=== PATIENT | female | born 1960 | race American Indian/Alaskan Native ===

== ENCOUNTER 2018-04-15 01:56 | Emergency (ER) | payer OTHER ==
[2018-04-15] MEDS ORDERED: TYLENOL ONE (02:46)
[2018-04-15] MEDS ORDERED: TYLENOL PO ONE (02:47)
--- NOTE | 2018-04-15 04:09 | Emergency Department Report ---
<AVINASH WOLF - Last Filed: 04/15/18 07:22> - General Chief complaint: Skin/Abscess/Foreign Body Stated complaint: VAGINAL PAIN Time Seen by Provider: 04/15/18 03:47 Source: patient Mode of arrival: Ambulatory Limitations: No Limitations - History of Present Illness Initial comments: Patient is a 59-year-old -[place] female who presents for a perianal abscess for the past year is a recurrent problem are either patient states worst is now bleeding there is associated malaise fever chills nausea patient is post menopausal status drainage has increased over the past 2 days patient has not seen Gen. surgery is referred for this problem. MD complaint: abscess/boil Onset/Timin -: year(s) Tetanus Up to Date: yes Location: genitals (perineal ) Severity: moderate Severity scale (0 -10): 5 Quality: aching, sharp Consistency: constant Improves with: none Worsens with: palpation, movement Associated symptoms: rigors, nausea, malaise Treatments Prior to Arrival: none - Related Data Previous Rx's Medication Instructions Recorded Last Taken Type Sulfamethoxazole/Trimethoprim 1 tab PO Q12H #30 tablet 11/23/12 Unknown Rx [Bactrim DS] Cyclobenzaprine [Flexeril] 10 mg PO TID PRN #12 tablet 05/20/13 Unknown Rx HYDROcodone/APAP 5-325 [Duarte 1 each PO Q6HR PRN #12 tablet 05/20/13 Unknown Rx 5/325 mg] Sulfamethoxazole/Trimethoprim 1 each PO BID #20 tablet 05/20/13 Unknown Rx [Bactrim Ds] traMADol [Ultram 50 MG tab] 1 tab PO Q6HR PRN #25 tablet 06/16/14 Unknown Rx Amoxicillin/K Clav Tab [Augmentin 1 tab PO Q12HR #20 tab 01/15/15 Unknown Rx 875 mg] HYDROcodone/APAP 5-325 [Duarte 1 each PO Q6HR PRN #12 tablet 01/15/15 Unknown Rx 5/325] predniSONE [Deltasone] 20 mg PO TID #12 tab 01/15/15 Unknown Rx Bacitracin Zinc [Antibiotic] 28.4 gm TP QID #1 oint...g. 08/06/15 Unknown Rx Permethrin 5% [Acticin 5% CREAM] 1 applicatio TP ONCE #2 tube 08/06/15 Unknown Rx Doxycycline Hyclate [Doxycycline 100 mg PO Q12HR #20 tab 12/11/17 Unknown Rx Hyclate TAB] Ibuprofen [Motrin 600 MG tab] 600 mg PO Q6H PRN #12 tablet 12/11/17 Unknown Rx Clindamycin [Clindamycin CAP] 300 mg PO Q6H 10 Days #40 capsule 04/15/18 Unknown Rx Ibuprofen [Motrin 600 MG tab] 600 mg PO Q8H PRN #20 tablet 04/15/18 Unknown Rx Sulfamethoxazole/Trimethoprim 1 each PO BID 10 Days #20 tablet 04/15/18 Unknown Rx [Bactrim DS TAB] traMADol [Ultram] 50 mg PO Q6HR PRN #12 tablet 04/15/18 Unknown Rx Allergies Allergy/AdvReac Type Severity Reaction Status Date / Time fish derived Allergy Swelling Verified 11/23/12 10:28 Abscess Boil HPI - HPI Chief Complaint: Skin/Abscess/Foreign Body Stated Complaint: VAGINAL PAIN Time Seen by Provider: 04/15/18 03:47 Home Medications: Previous Rx's Medication Instructions Recorded Last Taken Type Sulfamethoxazole/Trimethoprim 1 tab PO Q12H #30 tablet 11/23/12 Unknown Rx [Bactrim DS] Cyclobenzaprine [Flexeril] 10 mg PO TID PRN #12 tablet 05/20/13 Unknown Rx HYDROcodone/APAP 5-325 [Duarte 1 each PO Q6HR PRN #12 tablet 05/20/13 Unknown Rx 5/325 mg] Sulfamethoxazole/Trimethoprim 1 each PO BID #20 tablet 05/20/13 Unknown Rx [Bactrim Ds] traMADol [Ultram 50 MG tab] 1 tab PO Q6HR PRN #25 tablet 06/16/14 Unknown Rx Amoxicillin/K Clav Tab [Augmentin 1 tab PO Q12HR #20 tab 01/15/15 Unknown Rx 875 mg] HYDROcodone/APAP 5-325 [Duarte 1 each PO Q6HR PRN #12 tablet 01/15/15 Unknown Rx 5/325] predniSONE [Deltasone] 20 mg PO TID #12 tab 01/15/15 Unknown Rx Bacitracin Zinc [Antibiotic] 28.4 gm TP QID #1 oint...g. 08/06/15 Unknown Rx Permethrin 5% [Acticin 5% CREAM] 1 applicatio TP ONCE #2 tube 08/06/15 Unknown Rx Doxycycline Hyclate [Doxycycline 100 mg PO Q12HR #20 tab 12/11/17 Unknown Rx Hyclate TAB] Ibuprofen [Motrin 600 MG tab] 600 mg PO Q6H PRN #12 tablet 12/11/17 Unknown Rx Clindamycin [Clindamycin CAP] 300 mg PO Q6H 10 Days #40 capsule 04/15/18 Unknown Rx Ibuprofen [Motrin 600 MG tab] 600 mg PO Q8H PRN #20 tablet 04/15/18 Unknown Rx Sulfamethoxazole/Trimethoprim 1 each PO BID 10 Days #20 tablet 04/15/18 Unknown Rx [Bactrim DS TAB] traMADol [Ultram] 50 mg PO Q6HR PRN #12 tablet 04/15/18 Unknown Rx Allergies/Adverse Reactions: Allergies Allergy/AdvReac Type Severity Reaction Status Date / Time fish derived Allergy Swelling Verified 11/23/12 10:28 ED Review of Systems Constitutional: denies: chills, fever Eyes: denies: eye pain, eye discharge, vision change ENT: denies: ear pain, throat pain Respiratory: denies: cough, shortness of breath, wheezing Cardiovascular: denies: chest pain, palpitations Endocrine: no symptoms reported Gastrointestinal: nausea. denies: abdominal pain, vomiting, diarrhea Genitourinary: other (mass/abscess mon blood drainage ) Musculoskeletal: denies: back pain, joint swelling, arthralgia Skin: other (abscess as above ). denies: rash, lesions Neurological: denies: headache, weakness, paresthesias Psychiatric: denies: anxiety, depression Hematological/Lymphatic: denies: easy bleeding, easy bruising ED Past Medical Hx - Past Medical History Hx Hypertension: Yes Hx Congestive Heart Failure: Yes Hx Diabetes: No Hx Asthma: No Hx COPD: Yes - Surgical History Past Surgical History?: Yes Additional Surgical History: tubal ligation. cyst in breast - Social History Smoking Status: Never Smoker Substance Use Type: None - Medications Home Medications: Home Medications Medication Instructions Recorded Confirmed Last Taken Type Sulfamethoxazole/Trimethoprim 1 tab PO Q12H #30 tablet 11/23/12 08/05/15 Unknown Rx [Bactrim DS] Cyclobenzaprine [Flexeril] 10 mg PO TID PRN #12 tablet 05/20/13 08/05/15 Unknown Rx HYDROcodone/APAP 5-325 [Duarte 1 each PO Q6HR PRN #12 tablet 05/20/13 08/05/15 Unknown Rx 5/325 mg] Sulfamethoxazole/Trimethoprim 1 each PO BID #20 tablet 05/20/13 08/05/15 Unknown Rx [Bactrim Ds] traMADol [Ultram 50 MG tab] 1 tab PO Q6HR PRN #25 tablet 06/16/14 08/05/15 Unknown Rx Amoxicillin/K Clav Tab [Augmentin 1 tab PO Q12HR #20 tab 01/15/15 08/05/15 Unknown Rx 875 mg] HYDROcodone/APAP 5-325 [Duarte 1 each PO Q6HR PRN #12 tablet 01/15/15 08/05/15 Unknown Rx 5/325] predniSONE [Deltasone] 20 mg PO TID #12 tab 01/15/15 08/05/15 Unknown Rx Bacitracin Zinc [Antibiotic] 28.4 gm TP QID #1 oint...g. 08/06/15 Unknown Rx Permethrin 5% [Acticin 5% CREAM] 1 applicatio TP ONCE #2 tube 08/06/15 Unknown Rx Doxycycline Hyclate [Doxycycline 100 mg PO Q12HR #20 tab 12/11/17 Unknown Rx Hyclate TAB] Ibuprofen [Motrin 600 MG tab] 600 mg PO Q6H PRN #12 tablet 12/11/17 Unknown Rx Clindamycin [Clindamycin CAP] 300 mg PO Q6H 10 Days #40 capsule 04/15/18 Unknown Rx Ibuprofen [Motrin 600 MG tab] 600 mg PO Q8H PRN #20 tablet 04/15/18 Unknown Rx Sulfamethoxazole/Trimethoprim 1 each PO BID 10 Days #20 tablet 04/15/18 Unknown Rx [Bactrim DS TAB] traMADol [Ultram] 50 mg PO Q6HR PRN #12 tablet 04/15/18 Unknown Rx ED Physical Exam - General Limitations: No Limitations General appearance: alert, in no apparent distress - Head Head exam: Present: atraumatic, normocephalic - Eye Eye exam: Present: normal appearance - ENT ENT exam: Present: mucous membranes moist - Neck Neck exam: Present: normal inspection, full ROM - Respiratory Respiratory exam: Present: normal lung sounds bilaterally. Absent: respiratory distress - Cardiovascular Cardiovascular Exam: Present: regular rate, normal rhythm, normal heart sounds. Absent: systolic murmur, diastolic murmur, rubs, gallop - GI/Abdominal GI/Abdominal exam: Present: soft, normal bowel sounds. Absent: distended, tenderness, bruit, hernia - Rectal Rectal exam: Present: deferred - External exam: Present: other (abscess /mass mons no thrill no bruit blood drainatge warm to touch pain to palpation no vaginal drainage ) - Extremities Exam Extremities exam: Present: normal inspection - Back Exam Back exam: Present: normal inspection, full ROM. Absent: tenderness, CVA tenderness (R), CVA tenderness (L), muscle spasm, rash noted - Neurological Exam Neurological exam: Present: alert, oriented X3, CN II-XII intact, normal gait, reflexes normal - Psychiatric Psychiatric exam: Present: normal affect, normal mood - Skin Skin exam: Present: warm, dry, intact, normal color, other (perineal absce ss/Mass as above ). Absent: rash ED Medical Decision Making - Lab Data Result diagrams: 04/15/18 04:04 04/15/18 04:04 Labs 04/15/18 04/15/18 04/15/18 04:04 04:04 04:04 WBC 8.9 RBC 4.03 Hgb 11.7 Hct 35.3 MCV 88 MCH 29 MCHC 33 RDW 13.7 Plt Count 294 Lymph % (Auto) 23.3 Cole % (Auto) 7.8 H Eos % (Auto) 2.4 Baso % (Auto) 0.6 Lymph # 2.1 Cole # 0.7 Eos # 0.2 Baso # 0.0 Seg Neutrophils % 65.9 Seg Neutrophils # 5.9 Sodium 138 Potassium 3.4 L Chloride 102.0 Carbon Dioxide 21 L Anion Gap 18 BUN 12 Creatinine 0.8 Estimated GFR > 60 BUN/Creatinine Ratio 15 Glucose 101 H Lactic Acid 0.80 Calcium 8.4 Total Bilirubin 0.30 AST 23 ALT 14 Alkaline Phosphatase 106 C-Reactive Protein 5.60 H Total Protein 7.9 Albumin 3.2 L Albumin/Globulin Ratio 0.7 Urine Color Urine Turbidity Urine pH Ur Specific [place] Urine Protein Urine Glucose (UA) Urine Ketones Urine Blood Urine Nitrite Urine Bilirubin Urine Urobilinogen Ur Leukocyte Esterase Urine WBC (Auto) Urine RBC (Auto) U Epithel Cells (Auto) Urine Mucus 04/15/18 04:08 WBC RBC Hgb Hct MCV MCH MCHC RDW Plt Count Lymph % (Auto) Cole % (Auto) Eos % (Auto) Baso % (Auto) Lymph # Cole # Eos # Baso # Seg Neutrophils % Seg Neutrophils # Sodium Potassium Chloride Carbon Dioxide Anion Gap BUN Creatinine Estimated GFR BUN/Creatinine Ratio Glucose Lactic Acid Calcium Total Bilirubin AST ALT Alkaline Phosphatase C-Reactive Protein Total Protein Albumin Albumin/Globulin Ratio Urine Color Yellow Urine Turbidity Clear Urine pH 5.0 Ur Specific [place] 1.006 Urine Protein <15 mg/dl Urine Glucose (UA) Neg Urine Ketones Neg Urine Blood Lg Urine Nitrite Neg Urine Bilirubin Neg Urine Urobilinogen < 2.0 Ur Leukocyte Esterase Lg Urine WBC (Auto) 31.0 H Urine RBC (Auto) 18.0 U Epithel Cells (Auto) 1.0 Urine Mucus Few - Medical Decision Making symptoms improved, abd pain is resolved, there is no fever no n/v abscess mons is 3x4 cm firm, no drainage or bleeding at this time, dressing is dry and intact , CT pending, wbc: normal, cmp: K: 3.4, CO2: 21, ua: pos lue, wbc, rbc, pt tx with rocephin 1gm ivbp, plan: discussed tx options with patient including General surgery consult for mass / abscess, pt advises that she must work this weekend and cannot stay in hospital, and as mass /ascess is chronic of past 1 yr out pt tx is a reasonable course of action, there are no symptoms of sepsis at this time, will tx with clindamycin, pt will follow up with General surgery for evaluation , there is no vaginal bleeding no fever no n/v pt appears nontoxic at this time, ED Disposition Clinical Impression: UTI (urinary tract infection), Abscess, Abscess of pubic region, Cellulitis of pubic region Disposition: -01 TO HOME OR SELFCARE Condition: Stable Instructions: Cellulitis (ED), Abscess (ED), Bartholin Cyst (ED) Additional Instructions: Make sure to follow up with the primary care physician as discussed. Take all your medications as you've been prescribed. If you have any worsening symptoms or develop new symptoms please return to ED immediately. Prescriptions: Clindamycin [Clindamycin CAP] 300 mg PO Q6H 10 Days #40 capsule Ibuprofen [Motrin 600 MG tab] 600 mg PO Q8H PRN #20 tablet PRN Reason: Pain Sulfamethoxazole/Trimethoprim [Bactrim DS TAB] 1 each PO BID 10 Days #20 tablet traMADol [Ultram] 50 mg PO Q6HR PRN #12 tablet PRN Reason: Pain Referrals: RADHIKA SEARS MD [Primary Care Provider] - 3-5 Days DAI PADILLA MD [Referring] - 3-5 Days [facility] [Provider Group] - 3-5 Days STEPHIE ZARATE MD [Staff Physician] - 3-5 Days Forms: Accompanied Note, Work/School Release Form(ED) <AISSATOU RIVERA - Last Filed: 04/15/18 12:27> ED Review of Systems ROS: Stated complaint: VAGINAL PAIN Other details as noted in HPI ED Physical Exam - External exam: Present: erythema, swelling (vulva and mons pubis swelling and bleed from several holes, controlled.) ED Course Vital Signs 04/15/18 04/15/18 04/15/18 02:04 02:40 09:21 Temperature 97.7 F 97.7 F Pulse Rate 104 H 100 H 90 Respiratory 22 20 16 Rate Blood Pressure 183/101 164/100 Blood Pressure 161/96 [Left] O2 Sat by Pulse 96 99 99 Oximetry ED Medical Decision Making - Lab Data Result diagrams: 04/15/18 04:04 04/15/18 04:04 - Radiology Data Radiology results: report reviewed, image reviewed CT ABDOMEN AND PELVIS WITH CONTRAST INDICATION: Pelvic abscess. COMPARISON: None similar. FINDINGS: Abdomen and pelvis CT performed following intravenous administration of 100 cc of Omnipaque 300. LUNG BASES: Slight cardiomegaly. Nonspecific distal esophageal wall prominence/thickening, not excluded for gastroesophageal reflux and/or hiatal hernia, amongst others. ABDOMEN: Few small calcified gallstones noted dependently. Liver, spleen, pancreas, adrenals, aorta, IVC and kidneys within normal limits. No ascites or size significant mesenteric or retroperitoneal adenopathy. Nonopacified GI tract evaluation limited, though grossly nonobstructive. Tiny fat containing ventral hernia with a transverse neck of 0.5 cm. PELVIS: Urinary bladder, uterus, adnexa/ovaries and rectosigmoid within normal limits. No free fluid. Few bilateral inguinal lymph nodes measure up to 3.3 x 1 cm on the right, axial image 162, series 2. Labial/external genitalia increased attenuation/induration/abscess also partially imaged as on axial series 2, images [id number] measuring up to 3.5 x 5.3 cm as on axial image 195, predominantly involving the labia on the left with some infiltration also extending into the adjacent soft tissues on the right and also superiorly, extending suprapubic and up to the groins. Few small pelvic phleboliths. Few mild bony degenerative changes as involving the right hip with acetabular spurring laterally with pincer-type femoral acetabular impingement not entirely excluded. Please correlate. CONCLUSION: 1. External genitalia/labial induration/possible abscess, more so on the left with some inflammation/infiltration also extending into the adjacent soft tissues, as described above. No deeper intrapelvic extension of inflammation or abscess. Please correlate clinically. 2. Few other incidental findings as cholelithiasis and at the imaged lung bases, amongst others, as above. Thank you for the opportunity to participate in this patient's care. Transcribed By: RS Dictated By: GIORGI DÍAZ MD Electronically Authenticated By: GIORGI DÍAZ MD Signed Date/Time: 04/15/18 1083 - Medical Decision Making Advised pt to f/u with lead sprinkler as referred, take antibioyics as Prescribed Critical care attestation.: If time is entered above; I have spent that time in minutes in the direct care of this critically ill patient, excluding procedure time. ED Disposition Is pt being admited?: No Does the pt Need Aspirin: No Time of Disposition: 09:04
[2018-04-15 04:29] LABS: Bilirubin,Urine NEG (Negative); Blood,Urine LG (Negative); Color,Urine Yellow (Yellow); Mucus,Urine FEW /HPF; Protein,Urine <15 mg/dL mg/dL (Negative); Urobilinogen,Urine < 2.0 mg/dL (<2.0)
[2018-04-15 04:51] LABS: Basophils % (Auto) 0.6 % (0.0-1.8); Eosinophils # (Auto) 0.2 K/mm3 (0.0-0.4); Eosinophils % (Auto) 2.4 % (0.0-4.3); Hematocrit 35.3 % (30.3-42.9); Hemoglobin 11.7 gm/dl (10.1-14.3); Lymphocytes # (Auto) 2.1 K/mm3 (1.2-5.4); Lymphocytes % (Auto) 23.3 % (13.4-35.0); Mean Corpuscular HGB Conc 33 % (30-34); Mean Corpuscular Volume 88 fl (79-97); Monocytes # (Auto) 0.7 K/mm3 (0.0-0.8); Monocytes % (Auto) 7.8 % (0.0-7.3); Platelet Count 294 K/mm3 (140-440); Red Blood Count 4.03 M/mm3 (3.65-5.03); Red Cell Distribution Width 13.7 % (13.2-15.2)
[2018-04-15 05:11] LABS: Alanine Aminotransferase 14 units/L (7-56); Albumin 3.2 g/dL (3.9-5); BUN/Creatinine Ratio 15; Blood Urea Nitrogen 12 mg/dL (7-17); Calcium 8.4 mg/dL (8.4-10.2); Hemolysis Index 3
[2018-04-15] MEDS ORDERED: ZOFRAN IV ONE (05:13)
[2018-04-15] MEDS ORDERED: NACL 0.9% 1000 ML 1,000 ML IV ONE (05:13)
[2018-04-15] MEDS ORDERED: ROCEPHIN/NS 1 GM/50 ML 1 GM/50 ML BAG IV ONE (05:13)
[2018-04-15] MEDS ORDERED: MORPHINE IV ONE (05:13)
[2018-04-15] MEDS ORDERED: ROCEPHIN IM ONE (05:20)
--- NOTE | 2018-04-15 08:30 | Cat Scan Report ---
CT ABDOMEN AND PELVIS WITH CONTRAST INDICATION: Pelvic abscess. COMPARISON: None similar. FINDINGS: Abdomen and pelvis CT performed following intravenous administration of 100 cc of Omnipaque 300. LUNG BASES: Slight cardiomegaly. Nonspecific distal esophageal wall prominence/thickening, not excluded for gastroesophageal reflux and/or hiatal hernia, amongst others. ABDOMEN: Few small calcified gallstones noted dependently. Liver, spleen, pancreas, adrenals, aorta, IVC and kidneys within normal limits. No ascites or size significant mesenteric or retroperitoneal adenopathy. Nonopacified GI tract evaluation limited, though grossly nonobstructive. Tiny fat containing ventral hernia with a transverse neck of 0.5 cm. PELVIS: Urinary bladder, uterus, adnexa/ovaries and rectosigmoid within normal limits. No free fluid. Few bilateral inguinal lymph nodes measure up to 3.3 x 1 cm on the right, axial image 162, series 2. Labial/external genitalia increased attenuation/induration/abscess also partially imaged as on axial series 2, images 186-199 measuring up to 3.5 x 5.3 cm as on axial image 195, predominantly involving the labia on the left with some infiltration also extending into the adjacent soft tissues on the right and also superiorly, extending suprapubic and up to the groins. Few small pelvic phleboliths. Few mild bony degenerative changes as involving the right hip with acetabular spurring laterally with pincer-type femoral acetabular impingement not entirely excluded. Please correlate. CONCLUSION: 1. External genitalia/labial induration/possible abscess, more so on the left with some inflammation/infiltration also extending into the adjacent soft tissues, as described above. No deeper intrapelvic extension of inflammation or abscess. Please correlate clinically. 2. Few other incidental findings as cholelithiasis and at the imaged lung bases, amongst others, as above. Thank you for the opportunity to participate in this patient's care.
[2018-04-15] MEDS ORDERED: TORADOL IV ONE (09:06)
[2018-04-15 09:22] VITALS: BP 161/96
== END 2018-04-15 09:21 | disposition home or self-care (01) ==
LOC: ED 01:56
DX: L02.215 Cutaneous abscess of perineum (principal); N39.0 Urinary tract infection, site not specified; Z91.013 Allergy to seafood; I11.0 Hypertensive heart disease with heart failure; J44.9 Chronic obstructive pulmonary disease, unspecified; Z98.51 Tubal ligation status
CPT/HCPCS: 36415; 74177; 80053; 81001; 82140; 85025; 86140; 87040; 96365; 96375; 99284; J0696; J1885; J2270; J2405; J7030; Q9967

== ENCOUNTER 2018-07-17 14:27 | Emergency (ER) | payer OTHER ==
[2018-07-17 14:48] VITALS: BP 163/98
--- NOTE | 2018-07-17 14:49 | Emergency Department Report ---
Blank Doc - Documentation Documentation: 58 y o female with PMH of CHF presents with concerns with HTn not on medication, states she feeling headache, fatigue and dizziness. labs, cxr ACC eval
--- NOTE | 2018-07-17 15:15 | XRay Report ---
PROCEDURE: XR CHEST ROUTINE 2V TECHNIQUE: PA and lateral chest radiographs were obtained. HISTORY: Chest Pain COMPARISONS: None. FINDINGS: Heart: Normal. Mediastinum/Vessels: Normal. Lungs/Pleural space: Normal. Bony thorax: No acute osseous abnormality. IMPRESSION: Normal examination. This document is electronically signed by Kwadwo Fischer MD., July 17 2018 04:12:45 PM ET
--- NOTE | 2018-07-17 15:43 | Emergency Department Report ---
ED General Adult HPI - General Chief complaint: High BP Stated complaint: HBP Time Seen by Provider: 07/17/18 14:45 Source: patient Mode of arrival: Ambulatory Limitations: No Limitations - History of Present Illness Initial comments: Ms. Brambila is a 58-year-old female with a history of CHF, bronchitis, hypertension, who presents with 1 month of dizziness, headache and high blood pressure. She recently received dental care. At that time her blood pressure was elevated. Mild nondescript headache with lightheadedness. Denies palpitation. Denies c hest pain. Denies trouble with walking or speech. She drove to the ED by her personal vehicle. She does not have primary physician. She just recently obtained health insurance. For some reason she does not want to accepted the diagnosis of hypertension. -: Gradual, month(s) (1) Consistency: intermittent Improves with: rest Associated Symptoms: denies other symptoms - Related Data Previous Rx's Medication Instructions Recorded Last Taken Type Sulfamethoxazole/Trimethoprim 1 tab PO Q12H #30 tablet 11/23/12 Unknown Rx [Bactrim DS] Cyclobenzaprine [Flexeril] 10 mg PO TID PRN #12 tablet 05/20/13 Unknown Rx HYDROcodone/APAP 5-325 [Wentworth 1 each PO Q6HR PRN #12 tablet 05/20/13 Unknown Rx 5/325 mg] Sulfamethoxazole/Trimethoprim 1 each PO BID #20 tablet 05/20/13 Unknown Rx [Bactrim Ds] traMADol [Ultram 50 MG tab] 1 tab PO Q6HR PRN #25 tablet 06/16/14 Unknown Rx Amoxicillin/K Clav Tab [Augmentin 1 tab PO Q12HR #20 tab 01/15/15 Unknown Rx 875 mg] HYDROcodone/APAP 5-325 [Wentworth 1 each PO Q6HR PRN #12 tablet 01/15/15 Unknown Rx 5/325] predniSONE [Deltasone] 20 mg PO TID #12 tab 01/15/15 Unknown Rx Bacitracin Zinc [Antibiotic] 28.4 gm TP QID #1 oint...g. 08/06/15 Unknown Rx Permethrin 5% [Acticin 5% CREAM] 1 applicatio TP ONCE #2 tube 08/06/15 Unknown Rx Doxycycline Hyclate [Doxycycline 100 mg PO Q12HR #20 tab 12/11/17 Unknown Rx Hyclate TAB] Ibuprofen [Motrin 600 MG tab] 600 mg PO Q6H PRN #12 tablet 12/11/17 Unknown Rx Clindamycin [Clindamycin CAP] 300 mg PO Q6H 10 Days #40 capsule 04/15/18 Unknown Rx Ibuprofen [Motrin 600 MG tab] 600 mg PO Q8H PRN #20 tablet 04/15/18 Unknown Rx Sulfamethoxazole/Trimethoprim 1 each PO BID 10 Days #20 tablet 04/15/18 Unknown Rx [Bactrim DS TAB] traMADol [Ultram] 50 mg PO Q6HR PRN #12 tablet 04/15/18 Unknown Rx amLODIPine [Norvasc] 5 mg PO DAILY 30 Days #30 tab 07/17/18 Unknown Rx hydroCHLOROthiazide [HCTZ] 25 mg PO QDAY 30 Days #30 tablet 07/17/18 Unknown Rx Allergies Allergy/AdvReac Type Severity Reaction Status Date / Time fish derived Allergy Swelling Verified 07/17/18 14:29 ED Review of Systems ROS: Stated complaint: HBP Other details as noted in HPI Comment: All other systems reviewed and negative Constitutional: denies: fever, malaise Neurological: headache. denies: weakness, numbness, paresthesias, confusion, abnormal gait, vertigo ED Past Medical Hx - Past Medical History Previous Medical History?: Yes Hx Hypertension: Yes Hx Congestive Heart Failure: Yes Hx Diabetes: No Hx Asthma: No Hx COPD: Yes - Surgical History Past Surgical History?: Yes Additional Surgical History: tubal ligation. cyst in breast - Social History Smoking Status: Former Smoker Substance Use Type: Alcohol - Medications Home Medications: Home Medications Medication Instructions Recorded Confirmed Last Taken Type Sulfamethoxazole/Trimethoprim 1 tab PO Q12H #30 tablet 11/23/12 08/05/15 Unknown Rx [Bactrim DS] Cyclobenzaprine [Flexeril] 10 mg PO TID PRN #12 tablet 05/20/13 08/05/15 Unknown Rx HYDROcodone/APAP 5-325 [Wentworth 1 each PO Q6HR PRN #12 tablet 05/20/13 08/05/15 Unknown Rx 5/325 mg] Sulfamethoxazole/Trimethoprim 1 each PO BID #20 tablet 05/20/13 08/05/15 Unknown Rx [Bactrim Ds] traMADol [Ultram 50 MG tab] 1 tab PO Q6HR PRN #25 tablet 06/16/14 08/05/15 Unknown Rx Amoxicillin/K Clav Tab [Augmentin 1 tab PO Q12HR #20 tab 01/15/15 08/05/15 Unknown Rx 875 mg] HYDROcodone/APAP 5-325 [[place]worth 1 each PO Q6HR PRN #12 tablet 01/15/15 08/05/15 Unknown Rx 5/325] predniSONE [Deltasone] 20 mg PO TID #12 tab 01/15/15 08/05/15 Unknown Rx Bacitracin Zinc [Antibiotic] 28.4 gm TP QID #1 oint...g. 08/06/15 Unknown Rx Permethrin 5% [Acticin 5% CREAM] 1 applicatio TP ONCE #2 tube 08/06/15 Unknown Rx Doxycycline Hyclate [Doxycycline 100 mg PO Q12HR #20 tab 12/11/17 Unknown Rx Hyclate TAB] Ibuprofen [Motrin 600 MG tab] 600 mg PO Q6H PRN #12 tablet 12/11/17 Unknown Rx Clindamycin [Clindamycin CAP] 300 mg PO Q6H 10 Days #40 capsule 04/15/18 Unknown Rx Ibuprofen [Motrin 600 MG tab] 600 mg PO Q8H PRN #20 tablet 04/15/18 Unknown Rx Sulfamethoxazole/Trimethoprim 1 each PO BID 10 Days #20 tablet 04/15/18 Unknown Rx [Bactrim DS TAB] traMADol [Ultram] 50 mg PO Q6HR PRN #12 tablet 04/15/18 Unknown Rx amLODIPine [Norvasc] 5 mg PO DAILY 30 Days #30 tab 07/17/18 Unknown Rx hydroCHLOROthiazide [HCTZ] 25 mg PO QDAY 30 Days #30 tablet 07/17/18 Unknown Rx ED Physical Exam - General Limitations: No Limitations General appearance: alert, in no apparent distress - Head Head exam: Present: atraumatic, normocephalic - Eye Eye exam: Present: normal appearance - ENT ENT exam: Present: mucous membranes moist - Neck Neck exam: Present: normal inspection, full ROM. Absent: tenderness, meningismus - Respiratory Respiratory exam: Present: normal lung sounds bilaterally. Absent: respiratory distress, wheezes, rales, rhonchi - Cardiovascular Cardiovascular Exam: Present: regular rate, normal rhythm, normal heart sounds. Absent: systolic murmur, diastolic murmur, rubs, gallop - GI/Abdominal GI/Abdominal exam: Present: soft, normal bowel sounds. Absent: distended, tenderness, guarding, rebound - Extremities Exam Extremities exam: Present: normal inspection - Back Exam Back exam: Present: normal inspection - Neurological Exam Neurological exam: Present: alert, oriented X3 - Psychiatric Psychiatric exam: Present: normal affect, normal mood - Skin Skin exam: Present: warm, dry, intact, normal color. Absent: rash ED Course Vital Signs 07/17/18 14:45 Temperature 97.5 F L Pulse Rate 72 Respiratory 20 Rate Blood Pressure 163/98 O2 Sat by Pulse 99 Oximetry ED Medical Decision Making - Medical Decision Making Ms. Brambila is a 58-year-old female presents with 1 month of headache, lightheadedness. She concerned for elevated blood pressure readings. Prescribed amlodipine and chlorthalidone. I do not suspect an organ damage from hypertension present at this time. Referred to outpatient clinic and outpatient medicine physician wildlife conservation officer Critical care attestation.: If time is entered above; I have spent that time in minutes in the direct care of this critically ill patient, excluding procedure time. ED Disposition Clinical Impression: Tension headache, Light headedness, Hypertensive urgency Disposition: DC-01 TO HOME OR SELFCARE Is pt being admited?: No Does the pt Need Aspirin: No Condition: Stable Instructions: Hypertension (ED) Prescriptions: hydroCHLOROthiazide [HCTZ] 25 mg PO QDAY 30 Days #30 tablet amLODIPine [Norvasc] 5 mg PO DAILY 30 Days #30 tab Referrals: [facility] [Outside] - 3-5 Days ANGEL BLACKWELL MD [Staff Physician] - 3-5 Days
[2018-07-17] MEDS ORDERED: NORVASC PO ONE (15:50)
== END 2018-07-17 16:04 | disposition home or self-care (01) ==
LOC: ED 14:27
DX: G44.209 Tension-type headache, unspecified, not intractable (principal); I16.0 Hypertensive urgency; I11.0 Hypertensive heart disease with heart failure; I50.9 Heart failure, unspecified; J44.9 Chronic obstructive pulmonary disease, unspecified; Z98.51 Tubal ligation status; Z91.013 Allergy to seafood; Z87.891 Personal history of nicotine dependence
CPT/HCPCS: 71046; 99283

== ENCOUNTER 2019-08-25 00:50 | Emergency (ER) | payer SELFPAY ==
[2019-08-25 01:14] VITALS: BP 151/92
[2019-08-25] MEDS ORDERED: LIDOCAINE (2%) 20 MG/1 ML VIAL 20 ML MDV INFILTRATI ONE ×2 (07:34→07:38)
[2019-08-25] MEDS ORDERED: LIDOCAINE-MPF (1%) 10 MG/1 ML VIAL 5 ML INFILTRATI ONE (09:33)
[2019-08-25] MEDS ORDERED: oxyCODONE /ACETAMINOPHEN 5-325MG TAB PO ONE (09:33)
--- NOTE | 2019-08-25 09:43 | Emergency Department Report ---
- General Chief complaint: Skin/Abscess/Foreign Body Stated complaint: LOWER ABD PAIN Time Seen by Provider: 08/25/19 07:49 Source: patient Mode of arrival: Ambulatory Limitations: No Limitations - History of Present Illness Initial comments: 59-year-old F Cypriot female reports recurrent suprapubic abscess which she sustained after shaving her mons pubis area and continue to aggravate her today. A few days ago she reports swelling to the area with some pus discharge states that it has swelling of larger than it has in the past and she presents to the ED for definitive treatment. Reports no fever chills or sweats no chest pain palpitations no vaginal discharge no vaginal bleeding. MD complaint: abscess/boil -: Gradual Tetanus Up to Date: yes Location: genitals - Related Data Previous Rx's Medication Instructions Recorded Last Taken Type Sulfamethoxazole/Trimethoprim 1 tab PO Q12H #30 tablet 11/23/12 Unknown Rx [Bactrim DS] Cyclobenzaprine [Flexeril] 10 mg PO TID PRN #12 tablet 05/20/13 Unknown Rx HYDROcodone/APAP 5-325 [Joes 1 each PO Q6HR PRN #12 tablet 05/20/13 Unknown Rx 5/325 mg] Sulfamethoxazole/Trimethoprim 1 each PO BID #20 tablet 05/20/13 Unknown Rx [Bactrim Ds] traMADoL [Ultram 50 MG tab] 1 tab PO Q6HR PRN #25 tablet 06/16/14 Unknown Rx Amoxicillin/K Clav Tab [Augmentin 1 tab PO Q12HR #20 tab 01/15/15 Unknown Rx 875 mg] HYDROcodone/APAP 5-325 [Joes 1 each PO Q6HR PRN #12 tablet 01/15/15 Unknown Rx 5/325] predniSONE [Deltasone] 20 mg PO TID #12 tab 01/15/15 Unknown Rx Bacitracin Zinc [Antibiotic] 28.4 gm TP QID #1 oint...g. 08/06/15 Unknown Rx Permethrin 5% [Acticin 5% CREAM] 1 applicatio TP ONCE #2 tube 08/06/15 Unknown Rx Doxycycline Hyclate [Doxycycline 100 mg PO Q12HR #20 tab 12/11/17 Unknown Rx Hyclate TAB] Ibuprofen [Motrin 600 MG tab] 600 mg PO Q6H PRN #12 tablet 12/11/17 Unknown Rx Clindamycin [Clindamycin CAP] 300 mg PO Q6H 10 Days #40 capsule 04/15/18 Unknown Rx Ibuprofen [Motrin 600 MG tab] 600 mg PO Q8H PRN #20 tablet 04/15/18 Unknown Rx Sulfamethoxazole/Trimethoprim 1 each PO BID 10 Days #20 tablet 04/15/18 Unknown Rx [Bactrim DS TAB] traMADoL [Ultram] 50 mg PO Q6HR PRN #12 tablet 04/15/18 Unknown Rx amLODIPine 5 mg PO DAILY 30 Days #30 tab 07/17/18 Unknown Rx hydroCHLOROthiazide [HCTZ] 12.5 mg PO QDAY 30 Days #30 capsule 07/17/18 Unknown Rx Acetaminophen/Codeine [Tylenol #3] 1 tab PO Q6H PRN #15 tab 08/25/19 Unknown Rx Sulfamethoxazole/Trimethoprim 1 each PO BID #20 tablet 08/25/19 Unknown Rx [Bactrim Ds] cephALEXin [Keflex] 500 mg PO Q6HR #40 capsule 08/25/19 Unknown Rx Allergies Allergy/AdvReac Type Severity Reaction Status Date / Time fish derived Allergy Swelling Verified 07/17/18 14:29 Abscess Boil HPI - HPI Chief Complaint: Skin/Abscess/Foreign Body Stated Complaint: LOWER ABD PAIN Time Seen by Provider: 08/25/19 07:49 Home Medications: Previous Rx's Medication Instructions Recorded Last Taken Type Sulfamethoxazole/Trimethoprim 1 tab PO Q12H #30 tablet 11/23/12 Unknown Rx [Bactrim DS] Cyclobenzaprine [Flexeril] 10 mg PO TID PRN #12 tablet 05/20/13 Unknown Rx HYDROcodone/APAP 5-325 [Joes 1 each PO Q6HR PRN #12 tablet 05/20/13 Unknown Rx 5/325 mg] Sulfamethoxazole/Trimethoprim 1 each PO BID #20 tablet 05/20/13 Unknown Rx [Bactrim Ds] traMADoL [Ultram 50 MG tab] 1 tab PO Q6HR PRN #25 tablet 06/16/14 Unknown Rx Amoxicillin/K Clav Tab [Augmentin 1 tab PO Q12HR #20 tab 01/15/15 Unknown Rx 875 mg] HYDROcodone/APAP 5-325 [Joes 1 each PO Q6HR PRN #12 tablet 01/15/15 Unknown Rx 5/325] predniSONE [Deltasone] 20 mg PO TID #12 tab 01/15/15 Unknown Rx Bacitracin Zinc [Antibiotic] 28.4 gm TP QID #1 oint...g. 08/06/15 Unknown Rx Permethrin 5% [Acticin 5% CREAM] 1 applicatio TP ONCE #2 tube 08/06/15 Unknown Rx Doxycycline Hyclate [Doxycycline 100 mg PO Q12HR #20 tab 12/11/17 Unknown Rx Hyclate TAB] Ibuprofen [Motrin 600 MG tab] 600 mg PO Q6H PRN #12 tablet 12/11/17 Unknown Rx Clindamycin [Clindamycin CAP] 300 mg PO Q6H 10 Days #40 capsule 04/15/18 Unknown Rx Ibuprofen [Motrin 600 MG tab] 600 mg PO Q8H PRN #20 tablet 04/15/18 Unknown Rx Sulfamethoxazole/Trimethoprim 1 each PO BID 10 Days #20 tablet 04/15/18 Unknown Rx [Bactrim DS TAB] traMADoL [Ultram] 50 mg PO Q6HR PRN #12 tablet 04/15/18 Unknown Rx amLODIPine 5 mg PO DAILY 30 Days #30 tab 07/17/18 Unknown Rx hydroCHLOROthiazide [HCTZ] 12.5 mg PO QDAY 30 Days #30 capsule 07/17/18 Unknown Rx Acetaminophen/Codeine [Tylenol #3] 1 tab PO Q6H PRN #15 tab 08/25/19 Unknown Rx Sulfamethoxazole/Trimethoprim 1 each PO BID #20 tablet 08/25/19 Unknown Rx [Bactrim Ds] cephALEXin [Keflex] 500 mg PO Q6HR #40 capsule 08/25/19 Unknown Rx Allergies/Adverse Reactions: Allergies Allergy/AdvReac Type Severity Reaction Status Date / Time fish derived Allergy Swelling Verified 07/17/18 14:29 ED Review of Systems ROS: Stated complaint: LOWER ABD PAIN Other details as noted in HPI Comment: All other systems reviewed and negative ED Past Medical Hx - Past Medical History Previous Medical History?: Yes Hx Hypertension: Yes Hx Congestive Heart Failure: Yes Hx Diabetes: No Hx Asthma: No Hx COPD: Yes - Surgical History Past Surgical History?: Yes Additional Surgical History: tubal ligation. cyst in breast - Social History Smoking Status: Former Smoker Substance Use Type: Alcohol - Medications Home Medications: Home Medications Medication Instructions Recorded Confirmed Last Taken Type Sulfamethoxazole/Trimethoprim 1 tab PO Q12H #30 tablet 11/23/12 08/05/15 Unknown Rx [Bactrim DS] Cyclobenzaprine [Flexeril] 10 mg PO TID PRN #12 tablet 05/20/13 08/05/15 Unknown Rx HYDROcodone/APAP 5-325 [Joes 1 each PO Q6HR PRN #12 tablet 05/20/13 08/05/15 Unknown Rx 5/325 mg] Sulfamethoxazole/Trimethoprim 1 each PO BID #20 tablet 05/20/13 08/05/15 Unknown Rx [Bactrim Ds] traMADoL [Ultram 50 MG tab] 1 tab PO Q6HR PRN #25 tablet 06/16/14 08/05/15 Unkn own Rx Amoxicillin/K Clav Tab [Augmentin 1 tab PO Q12HR #20 tab 01/15/15 08/05/15 Unknown Rx 875 mg] HYDROcodone/APAP 5-325 [Joes 1 each PO Q6HR PRN #12 tablet 01/15/15 08/05/15 Unknown Rx 5/325] predniSONE [Deltasone] 20 mg PO TID #12 tab 01/15/15 08/05/15 Unknown Rx Bacitracin Zinc [Antibiotic] 28.4 gm TP QID #1 oint...g. 08/06/15 Unknown Rx Permethrin 5% [Acticin 5% CREAM] 1 applicatio TP ONCE #2 tube 08/06/15 Unknown Rx Doxycycline Hyclate [Doxycycline 100 mg PO Q12HR #20 tab 12/11/17 Unknown Rx Hyclate TAB] Ibuprofen [Motrin 600 MG tab] 600 mg PO Q6H PRN #12 tablet 12/11/17 Unknown Rx Clindamycin [Clindamycin CAP] 300 mg PO Q6H 10 Days #40 capsule 04/15/18 Unknown Rx Ibuprofen [Motrin 600 MG tab] 600 mg PO Q8H PRN #20 tablet 04/15/18 Unknown Rx Sulfamethoxazole/Trimethoprim 1 each PO BID 10 Days #20 tablet 04/15/18 Unknown Rx [Bactrim DS TAB] traMADoL [Ultram] 50 mg PO Q6HR PRN #12 tablet 04/15/18 Unknown Rx amLODIPine 5 mg PO DAILY 30 Days #30 tab 07/17/18 Unknown Rx hydroCHLOROthiazide [HCTZ] 12.5 mg PO QDAY 30 Days #30 capsule 07/17/18 Unknown Rx Acetaminophen/Codeine [Tylenol #3] 1 tab PO Q6H PRN #15 tab 08/25/19 Unknown Rx Sulfamethoxazole/Trimethoprim 1 each PO BID #20 tablet 08/25/19 Unknown Rx [Bactrim Ds] cephALEXin [Keflex] 500 mg PO Q6HR #40 capsule 08/25/19 Unknown Rx ED Physical Exam - General Limitations: No Limitations General appearance: alert, in no apparent distress - Head Head exam: Present: atraumatic, normocephalic - Eye Eye exam: Present: normal appearance - ENT ENT exam: Present: mucous membranes moist - Neck Neck exam: Present: normal inspection - Respiratory Respiratory exam: Present: normal lung sounds bilaterally. Absent: respiratory distress - Cardiovascular Cardiovascular Exam: Present: regular rate, normal rhythm. Absent: systolic murmur, diastolic murmur, rubs, gallop - GI/Abdominal GI/Abdominal exam: Present: soft, normal bowel sounds - Expanded Exam Expanded image: 1 - The abscess area is is erythematous with some fluctuance. The tenderness with palpation. Abscess size is 5 cm - Extremities Exam Extremities exam: Present: normal inspection - Back Exam Back exam: Present: normal inspection. Absent: CVA tenderness (R), CVA tenderness (L) - Neurological Exam Neurological exam: Present: alert, oriented X3, CN II-XII intact - Psychiatric Psychiatric exam: Present: normal affect, normal mood - Skin Skin exam: Present: warm, erythema. Absent: dry, intact, normal color, rash, petechiae, pallor, abrasion ED Course Vital Signs 08/25/19 01:05 Temperature 98.9 F Pulse Rate 79 Respiratory 20 Rate Blood Pressure 151/92 O2 Sat by Pulse 98 Oximetry - Procedure Description Procedures done: PRE-OP DIAGNOSIS: Mons pubis abscess. POST-OP DIAGNOSIS: Same. PROCEDURE: incision and drainage of abscess. Performing Physician/advanced practice provider: Lisandro Diallo_. . PROCEDURE: A timeout protocol was performed prior to initiating the procedure. The area was prepared and draped in the usual, sterile manner. The site was anesthetized with 2% lidocaine without epinephrine. A linear incision was along the local skin lines was made and the purulent material expressed. The abcess was explored thoroughly and sequestered pockets were opened. Wound was irrigated with normal saline and bleeding was minimal. Packing: None. . Followup: The patient tolerated the procedure well without complications. Standard post-procedure care is explained and return precautions are given. Critical care attestation.: If time is entered above; I have spent that time in minutes in the direct care of this critically ill patient, excluding procedure time. ED Disposition Clinical Impression: Encounter for incision and drainage procedure, Abscess Disposition: DC TO HOME OR SELFCARE Is pt being admited?: No Does the pt Need Aspirin: No Condition: Stable Instructions: Abscess (ED), Abscess Incision and Drainage (ED) Additional Instructions: Please keep wound clean with antibacterial soap and water as we discussed and be sure to follow-up for wound reevaluation scab discussed as well Prescriptions: Sulfamethoxazole/Trimethoprim [Bactrim Ds] 1 each PO BID #20 tablet cephALEXin [Keflex] 500 mg PO Q6HR #40 capsule Acetaminophen/Codeine [Tylenol #3] 1 tab PO Q6H PRN #15 tab PRN Reason: Pain Referrals: PRIMARY CARE, [Primary Care Provider] - 3-5 Days [facility] [Provider Group] - 2-3 Days (Please follow-up for wound reevaluation)
== END 2019-08-25 09:45 | disposition home or self-care (01) ==
LOC: ED 00:50
DX: L02.215 Cutaneous abscess of perineum (principal); I11.0 Hypertensive heart disease with heart failure; I50.9 Heart failure, unspecified; J44.9 Chronic obstructive pulmonary disease, unspecified; Z98.51 Tubal ligation status; Z98.890 Other specified postprocedural states; Z87.891 Personal history of nicotine dependence; Z79.1 Long term (current) use of non-steroidal anti-inflammatories (NSAID); Z79.2 Long term (current) use of antibiotics; Z79.899 Other long term (current) drug therapy; Z91.013 Allergy to seafood
CPT/HCPCS: 56405; 96372; 99282; J0696

== ENCOUNTER 2020-11-28 23:42 | Emergency (ER) | payer SELFPAY ==
[2020-11-29] MEDS ORDERED: dexAMETHasone 20 MG/5 ML VIAL IM ONE (00:51)
[2020-11-29] MEDS ORDERED: ACETAMINOPHEN 500 MG TAB PO ONE (00:51)
[2020-11-29] MEDS ORDERED: diphenhydrAMINE 25 MG CAP PO ONE (00:51)
[2020-11-29] MEDS ORDERED: METOCLOPRAMIDE 10 MG TAB PO ONE (00:51)
--- NOTE | 2020-11-29 01:05 | Emergency Department Report ---
ED General Adult HPI - General Chief complaint: High BP Stated complaint: TENSION HEADACHE Time Seen by Provider: 11/29/20 01:00 Source: patient Mode of arrival: Ambulatory Limitations: No Limitations - History of Present Illness Initial comments: Patient 60-year-old female who presents for sinus headache with nausea vomiting x3 days. The symptoms are exacerbated by movement. Are relieved by nothing tried. No T-max noted at home. Patient arrived via POV alert oriented x3 amatory with steady gait. - Related Data Previous Rx's Medication Instructions Recorded Last Taken Type Sulfamethoxazole/Trimethoprim 1 tab PO Q12H #30 tablet 11/23/12 Unknown Rx [Bactrim DS] Cyclobenzaprine [Flexeril] 10 mg PO TID PRN #12 tablet 05/20/13 Unknown Rx HYDROcodone/APAP 5-325 [[place] 1 each PO Q6HR PRN #12 tablet 05/20/13 Unknown Rx 5/325 mg] Sulfamethoxazole/Trimethoprim 1 each PO BID #20 tablet 05/20/13 Unknown Rx [Bactrim Ds] traMADoL [Ultram 50 MG tab] 1 tab PO Q6HR PRN #25 tablet 06/16/14 Unknown Rx Amoxicillin/K Clav Tab [Augmentin 1 tab PO Q12HR #20 tab 01/15/15 Unknown Rx 875 mg] HYDROcodone/APAP 5-325 [[place] 1 each PO Q6HR PRN #12 tablet 01/15/15 Unknown Rx 5/325] predniSONE [Deltasone] 20 mg PO TID #12 tab 01/15/15 Unknown Rx Bacitracin Zinc [Antibiotic] 28.4 gm TP QID #1 oint...g. 08/06/15 Unknown Rx Permethrin 5% [Acticin 5% CREAM] 1 applicatio TP ONCE #2 tube 08/06/15 Unknown Rx Doxycycline Hyclate [Doxycycline 100 mg PO Q12HR #20 tab 12/11/17 Unknown Rx Hyclate TAB] Ibuprofen [Motrin 600 MG tab] 600 mg PO Q6H PRN #12 tablet 12/11/17 Unknown Rx Clindamycin [Clindamycin CAP] 300 mg PO Q6H 10 Days #40 capsule 04/15/18 Unknown Rx Ibuprofen [Motrin 600 MG tab] 600 mg PO Q8H PRN #20 tablet 04/15/18 Unknown Rx Sulfamethoxazole/Trimethoprim 1 each PO BID 10 Days #20 tablet 04/15/18 Unknown Rx [Bactrim DS TAB] traMADoL [Ultram] 50 mg PO Q6HR PRN #12 tablet 04/15/18 Unknown Rx amLODIPine 5 mg PO DAILY 30 Days #30 tab 07/17/18 Unknown Rx hydroCHLOROthiazide [HCTZ] 12.5 mg PO QDAY 30 Days #30 capsule 07/17/18 Unknown Rx Acetaminophen/Codeine [Tylenol #3] 1 tab PO Q6H PRN #15 tab 08/25/19 Unknown Rx Sulfamethoxazole/Trimethoprim 1 each PO BID #20 tablet 08/25/19 Unknown Rx [Bactrim Ds] cephALEXin [Keflex] 500 mg PO Q6HR #40 capsule 08/25/19 Unknown Rx Acetaminophen [Acetaminophen TAB] 1,000 mg PO Q6H PRN #30 tablet 11/29/20 Unknown Rx Metoclopramide [Reglan] 10 mg PO TID #30 tab 11/29/20 Unknown Rx diphenhydrAMINE [Benadryl CAP] 25 mg PO Q8HR PRN #30 capsule 11/29/20 Unknown Rx Allergies Allergy/AdvReac Type Severity Reaction Status Date / Time fish derived Allergy Swelling Verified 07/17/18 14:29 ED Review of Systems ROS: Stated complaint: TENSION HEADACHE Other details as noted in HPI Constitutional: malaise. denies: fever Eyes: denies: eye pain, eye discharge, vision change ENT: throat pain, congestion. denies: hearing loss Respiratory: denies: cough, shortness of breath, wheezing Cardiovascular: denies: chest pain, palpitations Endocrine: no symptoms reported Gastrointestinal: denies: abdominal pain, nausea, diarrhea Genitourinary: denies: urgency, dysuria, discharge Musculoskeletal: denies: back pain, joint swelling, arthralgia Skin: denies: rash, lesions Neurological: headache. denies: weakness, numbness, paresthesias, vertigo Psychiatric: denies: anxiety, depression Hematological/Lymphatic: denies: easy bleeding, easy bruising ED Past Medical Hx - Past Medical History Previous Medical History?: Yes Hx Hypertension: Yes Hx Congestive Heart Failure: Yes Hx Diabetes: No Hx Asthma: No Hx COPD: Yes - Surgical History Past Surgical History?: Yes Additional Surgical History: tubal ligation. cyst in breast - Social History Smoking Status: Former Smoker Substance Use Type: Alcohol - Medications Home Medications: Home Medications Medication Instructions Recorded Confirmed Last Taken Type Sulfamethoxazole/Trimethoprim 1 tab PO Q12H #30 tablet 11/23/12 08/05/15 Unknown Rx [Bactrim DS] Cyclobenzaprine [Flexeril] 10 mg PO TID PRN #12 tablet 05/20/13 08/05/15 Unknown Rx HYDROcodone/APAP 5-325 [[place] 1 each PO Q6HR PRN #12 tablet 05/20/13 08/05/15 Unknown Rx 5/325 mg] Sulfamethoxazole/Trimethoprim 1 each PO BID #20 tablet 05/20/13 08/05/15 Unknown Rx [Bactrim Ds] traMADoL [Ultram 50 MG tab] 1 tab PO Q6HR PRN #25 tablet 06/16/14 08/05/15 Unknown Rx Amoxicillin/K Clav Tab [Augmentin 1 tab PO Q12HR #20 tab 01/15/15 08/05/15 Unknown Rx 875 mg] HYDROcodone/APAP 5-325 [[place] 1 each PO Q6HR PRN #12 tablet 01/15/15 08/05/15 Unknown Rx 5/325] predniSONE [Deltasone] 20 mg PO TID #12 tab 01/15/15 08/05/15 Unknown Rx Bacitracin Zinc [Antibiotic] 28.4 gm TP QID #1 oint...g. 08/06/15 Unknown Rx Permethrin 5% [Acticin 5% CREAM] 1 applicatio TP ONCE #2 tube 08/06/15 Unknown Rx Doxycycline Hyclate [Doxycycline 100 mg PO Q12HR #20 tab 12/11/17 Unknown Rx Hyclate TAB] Ibuprofen [Motrin 600 MG tab] 600 mg PO Q6H PRN #12 tablet 12/11/17 Unknown Rx Clindamycin [Clindamycin CAP] 300 mg PO Q6H 10 Days #40 capsule 04/15/18 Unknown Rx Ibuprofen [Motrin 600 MG tab] 600 mg PO Q8H PRN #20 tablet 04/15/18 Unknown Rx Sulfamethoxazole/Trimethoprim 1 each PO BID 10 Days #20 tablet 04/15/18 Unknown Rx [Bactrim DS TAB] traMADoL [Ultram] 50 mg PO Q6HR PRN #12 tablet 04/15/18 Unknown Rx amLODIPine 5 mg PO DAILY 30 Days #30 tab 07/17/18 Unknown Rx hydroCHLOROthiazide [HCTZ] 12.5 mg PO QDAY 30 Days #30 capsule 07/17/18 Unknown Rx Acetaminophen/Codeine [Tylenol #3] 1 tab PO Q6H PRN #15 tab 08/25/19 Unknown Rx Sulfamethoxazole/Trimethoprim 1 each PO BID #20 tablet 08/25/19 Unknown Rx [Bactrim Ds] cephALEXin [Keflex] 500 mg PO Q6HR #40 capsule 08/25/19 Unknown Rx Acetaminophen [Acetaminophen TAB] 1,000 mg PO Q6H PRN #30 tablet 11/29/20 Unknown Rx Metoclopramide [Reglan] 10 mg PO TID #30 tab 11/29/20 Unknown Rx diphenhydrAMINE [Benadryl CAP] 25 mg PO Q8HR PRN #30 capsule 11/29/20 Unknown Rx ED Physical Exam - General Limitations: No Limitations General appearance: alert, in no apparent distress - Head Head exam: Present: normocephalic, normal inspection - Eye Eye exam: Present: normal appearance, PERRL, EOMI Pupils: Present: normal accommodation - ENT ENT exam: Present: mucous membranes moist, TM's normal bilaterally - Neck Neck exam: Present: normal inspection, full ROM, lymphadenopathy - Respiratory Respiratory exam: Present: normal lung sounds bilaterally, stridor. Absent: respiratory distress, wheezes, rales, rhonchi, chest wall tenderness, accessory muscle use, prolonged expiratory - Cardiovascular Cardiovascular Exam: Present: regular rate, normal rhythm. Absent: systolic murmur, diastolic murmur, rubs, gallop - GI/Abdominal GI/Abdominal exam: Present: soft, normal bowel sounds. Absent: distended, tenderness, guarding, rebound, rigid, bruit, pulsatile mass - Rectal Rectal exam: Present: deferred - Extremities Exam Extremities exam: Present: normal inspection, full ROM, normal capillary refill. Absent: tenderness - Back Exam Back exam: Present: normal inspection, full ROM. Absent: tenderness, CVA tenderness (R), CVA tenderness (L) - Neurological Exam Neurological exam: Present: alert, oriented X3, CN II-XII intact, normal gait, reflexes normal - Psychiatric Psychiatric exam: Present: normal affect, normal mood, flat affect. Absent: suicidal ideation - Skin Skin exam: Present: warm, dry, intact, normal color, diaphoretic. Absent: rash ED Course Vital Signs 11/29/20 00:39 Temperature 97.9 F Pulse Rate 74 Respiratory 18 Rate Blood Pressure 163/90 O2 Sat by Pulse 100 Oximetry ED Medical Decision Making - Radiology Data Radiology results: report reviewed, image reviewed - Medical Decision Making There is a sinus headache plan Tylenol Benadryl Reglan. Follow-up with your doctor in 2 to 3 days. Return to emergency should symptoms worsen. Patient currently alert oriented x3 amatory with steady gait with no acute distress there is no neuro deficits. Critical care attestation.: If time is entered above; I have spent that time in minutes in the direct care of this critically ill patient, excluding procedure time. ED Disposition Clinical Impression: Sinus headache Sinusitis Qualifiers: Sinusitis location: sphenoidal Chronicity: acute Recurrence: non-recurrent Qualified Code(s): J01.30 - Acute sphenoidal sinusitis, unspecified Disposition: HOME / SELF CARE / HOMELESS Is pt being admited?: No Does the pt Need Aspirin: No Condition: Stable Instructions: Sinusitis, Adult, [id number], Form - Headache Record Additional Instructions: Take medications as prescribed, follow-up with your doctor in 2 to 3 days. Return to emergency department for symptoms worsen. Prescriptions: Acetaminophen [Acetaminophen TAB] 1,000 mg PO Q6H PRN #30 tablet PRN Reason: Headache diphenhydrAMINE [Benadryl CAP] 25 mg PO Q8HR PRN #30 capsule PRN Reason: Headache Metoclopramide [Reglan] 10 mg PO TID #30 tab Referrals: JORGE SARMIENTO MD [Referring] - 3-5 Days Forms: Work/School Release Form(ED) Time of Disposition: 02:38
[2020-11-29 03:10] VITALS: BP 152/70
== END 2020-11-29 03:10 | disposition home or self-care (01) ==
LOC: ED 23:42
DX: J32.9 Chronic sinusitis, unspecified (principal); R11.2 Nausea with vomiting, unspecified; Z87.891 Personal history of nicotine dependence; F10.21 Alcohol dependence, in remission; I10 Essential (primary) hypertension; I50.9 Heart failure, unspecified; J44.9 Chronic obstructive pulmonary disease, unspecified
CPT/HCPCS: 96372; 99282; J1100

== ENCOUNTER 2021-03-29 14:23 | Emergency (ER) | payer SELFPAY ==
[2021-03-29 15:25] VITALS: BP 149/92
--- NOTE | 2021-03-29 15:52 | Emergency Department Report ---
ED General Adult HPI - General Chief complaint: Upper Respiratory Infection Stated complaint: NASAL/CHEST CONGESTION Source: patient Mode of arrival: Ambulatory Limitations: No Limitations - History of Present Illness Initial comments: 60-year-old female presents to the ED complaining of headache, nasal congestion ,ears popping cough x1 week. She is unvaccinated to COVID. Patient also complained abscess to the pelvic area with purulent drainage x1 week. Patient states that she occasionally get abscess to the area due to shave. She has had abscess I&D in the past. Patient states she did not have medical insurance to follow-up with primary care doctor or [facility] as previous instructed. Patient denies any fever, chills or nausea and vomiting. No acute distress noted .No ill appearance noted. Severity scale (0 -10): 5 - Related Data Previous Rx's Medication Instructions Recorded Last Taken Type Sulfamethoxazole/Trimethoprim 1 tab PO Q12H #30 tablet 11/23/12 Unknown Rx [Bactrim DS] Cyclobenzaprine [Flexeril] 10 mg PO TID PRN #12 tablet 05/20/13 Unknown Rx HYDROcodone/APAP 5-325 [[place] 1 each PO Q6HR PRN #12 tablet 05/20/13 Unknown Rx 5/325 mg] Sulfamethoxazole/Trimethoprim 1 each PO BID #20 tablet 05/20/13 Unknown Rx [Bactrim Ds] traMADoL [Ultram 50 MG tab] 1 tab PO Q6HR PRN #25 tablet 06/16/14 Unknown Rx Amoxicillin/K Clav Tab [Augmentin 1 tab PO Q12HR #20 tab 01/15/15 Unknown Rx 875 mg] HYDROcodone/APAP 5-325 [[place] 1 each PO Q6HR PRN #12 tablet 01/15/15 Unknown Rx 5/325] predniSONE [Deltasone] 20 mg PO TID #12 tab 01/15/15 Unknown Rx Bacitracin Zinc [Antibiotic] 28.4 gm TP QID #1 oint...g. 08/06/15 Unknown Rx Permethrin 5% [Acticin 5% CREAM] 1 applicatio TP ONCE #2 tube 08/06/15 Unknown Rx Doxycycline Hyclate [Doxycycline 100 mg PO Q12HR #20 tab 12/11/17 Unknown Rx Hyclate TAB] Ibuprofen [Motrin 600 MG tab] 600 mg PO Q6H PRN #12 tablet 12/11/17 Unknown Rx Clindamycin [Clindamycin CAP] 300 mg PO Q6H 10 Days #40 capsule 04/15/18 Unknown Rx Ibuprofen [Motrin 600 MG tab] 600 mg PO Q8H PRN #20 tablet 04/15/18 Unknown Rx Sulfamethoxazole/Trimethoprim 1 each PO BID 10 Days #20 tablet 04/15/18 Unknown Rx [Bactrim DS TAB] traMADoL [Ultram] 50 mg PO Q6HR PRN #12 tablet 04/15/18 Unknown Rx amLODIPine 5 mg PO DAILY 30 Days #30 tab 07/17/18 Unknown Rx hydroCHLOROthiazide [HCTZ] 12.5 mg PO QDAY 30 Days #30 capsule 07/17/18 Unknown Rx Acetaminophen/Codeine [Tylenol #3] 1 tab PO Q6H PRN #15 tab 08/25/19 Unknown Rx Sulfamethoxazole/Trimethoprim 1 each PO BID #20 tablet 08/25/19 Unknown Rx [Bactrim Ds] cephALEXin [Keflex] 500 mg PO Q6HR #40 capsule 08/25/19 Unknown Rx Acetaminophen [Acetaminophen TAB] 1,000 mg PO Q6H PRN #30 tablet 11/29/20 Unknown Rx Metoclopramide [Reglan] 10 mg PO TID #30 tab 11/29/20 Unknown Rx diphenhydrAMINE [Benadryl CAP] 25 mg PO Q8HR PRN #30 capsule 11/29/20 Unknown Rx Sulfamethoxazole/Trimethoprim 1 each PO BID 10 Days #20 tab 03/29/21 Unknown Rx [Bactrim DS TAB] cephALEXin [Keflex] 500 mg PO Q12HR 10 Days #20 cap 03/29/21 Unknown Rx Allergies Allergy/AdvReac Type Severity Reaction Status Date / Time fish derived Allergy Swelling Verified 07/17/18 14:29 ED Review of Systems ROS: Stated complaint: NASAL/CHEST CONGESTION Other details as noted in HPI Constitutional: denies: chills, fever Eyes: denies: eye pain, eye discharge, vision change ENT: ear pain, congestion. denies: throat pain Respiratory: cough. denies: shortness of breath, wheezing Cardiovascular: denies: chest pain, palpitations Endocrine: no symptoms reported Gastrointestinal: denies: abdominal pain, nausea, diarrhea Genitourinary: denies: urgency, dysuria, discharge Musculoskeletal: denies: back pain, joint swelling, arthralgia Skin: lesions. denies: rash Neurological: denies: headache, weakness, paresthesias Psychiatric: denies: anxiety, depression Hematological/Lymphatic: denies: easy bleeding, easy bruising ED Past Medical Hx - Past Medical History Previous Medical History?: Yes Hx Hypertension: Yes Hx Congestive Heart Failure: Yes Hx Diabetes: No Hx Asthma: No Hx COPD: Yes - Surgical History Past Surgical History?: Yes Additional Surgical History: tubal ligation. cyst in breast - Social History Smoking Status: Former Smoker Substance Use Type: Alcohol - Medications Home Medications: Home Medications Medication Instructions Recorded Confirmed Last Taken Type Sulfamethoxazole/Trimethoprim 1 tab PO Q12H #30 tablet 11/23/12 08/05/15 Unknown Rx [Bactrim DS] Cyclobenzaprine [Flexeril] 10 mg PO TID PRN #12 tablet 05/20/13 08/05/15 Unknown Rx HYDROcodone/APAP 5-325 [[place] 1 each PO Q6HR PRN #12 tablet 05/20/13 08/05/15 Unknown Rx 5/325 mg] Sulfamethoxazole/Trimethoprim 1 each PO BID #20 tablet 05/20/13 08/05/15 Unknown Rx [Bactrim Ds] traMADoL [Ultram 50 MG tab] 1 tab PO Q6HR PRN #25 tablet 06/16/14 08/05/15 Unknown Rx Amoxicillin/K Clav Tab [Augmentin 1 tab PO Q12HR #20 tab 01/15/15 08/05/15 Unknown Rx 875 mg] HYDROcodone/APAP 5-325 [[place] 1 each PO Q6HR PRN #12 tablet 01/15/15 08/05/15 Unknown Rx 5/325] predniSONE [Deltasone] 20 mg PO TID #12 tab 01/15/15 08/05/15 Unknown Rx Bacitracin Zinc [Antibiotic] 28.4 gm TP QID #1 oint...g. 08/06/15 Unknown Rx Permethrin 5% [Acticin 5% CREAM] 1 applicatio TP ONCE #2 tube 08/06/15 Unknown Rx Doxycycline Hyclate [Doxycycline 100 mg PO Q12HR #20 tab 12/11/17 Unknown Rx Hyclate TAB] Ibuprofen [Motrin 600 MG tab] 600 mg PO Q6H PRN #12 tablet 12/11/17 Unknown Rx Clindamycin [Clindamycin CAP] 300 mg PO Q6H 10 Days #40 capsule 04/15/18 Unknown Rx Ibuprofen [Motrin 600 MG tab] 600 mg PO Q8H PRN #20 tablet 04/15/18 Unknown Rx Sulfamethoxazole/Trimethoprim 1 each PO BID 10 Days #20 tablet 04/15/18 Unknown Rx [Bactrim DS TAB] traMADoL [Ultram] 50 mg PO Q6HR PRN #12 tablet 04/15/18 Unknown Rx amLODIPine 5 mg PO DAILY 30 Days #30 tab 07/17/18 Unknown Rx hydroCHLOROthiazide [HCTZ] 12.5 mg PO QDAY 30 Days #30 capsule 07/17/18 Unknown Rx Acetaminophen/Codeine [Tylenol #3] 1 tab PO Q6H PRN #15 tab 08/25/19 Unknown Rx Sulfamethoxazole/Trimethoprim 1 each PO BID #20 tablet 08/25/19 Unknown Rx [Bactrim Ds] cephALEXin [Keflex] 500 mg PO Q6HR #40 capsule 08/25/19 Unknown Rx Acetaminophen [Acetaminophen TAB] 1,000 mg PO Q6H PRN #30 tablet 11/29/20 Unknown Rx Metoclopramide [Reglan] 10 mg PO TID #30 tab 11/29/20 Unknown Rx diphenhydrAMINE [Benadryl CAP] 25 mg PO Q8HR PRN #30 capsule 11/29/20 Unknown Rx Sulfamethoxazole/Trimethoprim 1 each PO BID 10 Days #20 tab 03/29/21 Unknown Rx [Bactrim DS TAB] cephALEXin [Keflex] 500 mg PO Q12HR 10 Days #20 cap 03/29/21 Unknown Rx ED Physical Exam - General Limitations: No Limitations General appearance: alert, in no apparent distress - Head Head exam: Present: atraumatic, normocephalic - Eye Eye exam: Present: normal appearance - ENT ENT exam: Present: mucous membranes moist - Neck Neck exam: Present: normal inspection - Respiratory Respiratory exam: Present: normal lung sounds bilaterally. Absent: respiratory distress - Cardiovascular Cardiovascular Exam: Present: regular rate, normal rhythm. Absent: systolic murmur, diastolic murmur, rubs, gallop - GI/Abdominal GI/Abdominal exam: Present: soft, normal bowel sounds - External exam: Present: erythema, swelling, lesions - Extremities Exam Extremities exam: Present: normal inspection - Back Exam Back exam: Present: normal inspection - Neurological Exam Neurological exam: Present: alert, oriented X3 - Psychiatric Psychiatric exam: Present: normal affect, normal mood - Skin Skin exam: Present: warm, dry, intact, normal color. Absent: rash ED Course Vital Signs 03/29/21 15:24 Temperature 98.3 F Pulse Rate 85 Respiratory 20 Rate Blood Pressure 149/92 [Right] O2 Sat by Pulse 99 Oximetry ED Medical Decision Making - Medical Decision Making 60-year-old female presents to the ED complaining of headache, nasal congestion ,ears popping cough x1 week. She is unvaccinated to COVID. Patient also complained abscess to the pelvic area with purulent drainage x1 week. Patient states that she occasionally get abscess to the area due to shave. She has had abscess I&D in the past. Patient states she did not have medical insurance to follow-up with primary care doctor or [facility] as previous instructed. Patient denies any fever, chills or nausea and vomiting. No acute distress noted .No ill appearance noted. Rechecked the patient is resting quietly quietly and comfortable and feeling better. I discussed the results of diagnostic study, my clinical impression and the plan for further treatment with the patient. Patient agrees with plan and discharge at this present time. All question addressed. I have given the patient instruction regarding a diagnosis ,expectation ,follow- up and return precaution. I explained to the patient that emergent condition may arise and to return to the ED for new worsen and any new persisting condition. I have explained the importance of following up with the primary care physician or referral physician listed below has instructed. The patient verbalized understanding of discharge instruction. Critical care attestation.: If time is entered above; I have spent that time in minutes in the direct care of this critically ill patient, excluding procedure time. ED Disposition Clinical Impression: Abscess, URI (upper respiratory infection) Disposition: 01 HOME / SELF CARE / HOMELESS Is pt being admited?: No Does the pt Need Aspirin: No Condition: Stable Instructions: Skin Abscess, [id number], Upper Respiratory Infection, Adult, [id number] Additional Instructions: Your symptoms appear most consistent with a nonspecific viral syndrome. However, given this current pandemic, COVID-19 is in the differential of possibilities. Despite your previous negative COVID-19 test, I do recommend repeat outpatient Covid 19 testing. In the meantime, isolate/quarantine yourself and stay away from anyone who is elderly, immunocompromised or chronically ill. You can use ibuprofen every 6-8 hours and Tylenol every 4-8 hours, using the dosing on the back of the bottle, as needed for any fever or body aches. Return to the emergency department with any worsening of your symptoms, development of chest pain or shortness of breath, or with any acute distress. Take medication as prescribed Follow-up with [facility] or [facility] Return to ED for any worsening symptoms Prescriptions: Sulfamethoxazole/Trimethoprim [Bactrim DS TAB] 1 each PO BID 10 Days #20 tab cephALEXin [Keflex] 500 mg PO Q12HR 10 Days #20 cap Referrals: PRIMARY CARE, [Primary Care Provider] - 3-5 Days [facility] [Provider Group] - 3-5 Days Forms: Work/School Release Form(ED)
== END 2021-03-29 16:12 | disposition home or self-care (01) ==
LOC: ED 14:23
DX: N73.9 Female pelvic inflammatory disease, unspecified (principal); J06.9 Acute upper respiratory infection, unspecified; I11.0 Hypertensive heart disease with heart failure; I50.9 Heart failure, unspecified; J44.9 Chronic obstructive pulmonary disease, unspecified; Z98.51 Tubal ligation status; Z87.891 Personal history of nicotine dependence; Z91.013 Allergy to seafood; Z79.899 Other long term (current) drug therapy
CPT/HCPCS: 99282

== ENCOUNTER 2021-08-15 12:36 | Emergency (ER) | payer SELFPAY ==
[2021-08-15 12:48] VITALS: BP 161/90
--- NOTE | 2021-08-15 13:08 | Emergency Department Report ---
ED Fall HPI - General Chief Complaint: Back Pain/Injury Stated Complaint: BACK PAIN Time Seen by Provider: 08/15/21 12:49 Source: patient Mode of arrival: Ambulatory - History of Present Illness Initial Comments: 61-year-old black female presents to the emergency department for evaluation of lower back pain. She states that while walking around 2 days ago, she slipped and fell landing on her buttocks. She states that she has had lower back pain since then. She denies loss of consciousness, fever, urinary symptoms, or radiation of pain. She states that she has not taken any medications for pain and pain is worse has been about 7 out of 10. MD Complaint: fall -: Sudden, days(s) (2) Fall From: standing When Fall Occurred: # days DEMI CHEF (2) Fall Witnessed: yes, by family Place Fall Occurred: street Loss of Consciousness: none Prolonged Down Time?: no Symptoms Prior to Fall: none Location: buttocks Severity: moderate Severity scale (0 -10): 7 Quality: aching Context: tripped/slipped Associated Symptoms: denies: headache, neck pain, numbness, weakness, chest paint, shortness of breath, abdominal pain, hematuria, unable to walk, lightheaded, vertigo, confusion - Related Data Previous Rx's Medication Instructions Recorded Last Taken Type Sulfamethoxazole/Trimethoprim 1 tab PO Q12H #30 tablet 11/23/12 Unknown Rx [Bactrim DS] Cyclobenzaprine [Flexeril] 10 mg PO TID PRN #12 tablet 05/20/13 Unknown Rx HYDROcodone/APAP 5-325 [[place] 1 each PO Q6HR PRN #12 tablet 05/20/13 Unknown Rx 5/325 mg] Sulfamethoxazole/Trimethoprim 1 each PO BID #20 tablet 05/20/13 Unknown Rx [Bactrim Ds] traMADoL [Ultram 50 MG tab] 1 tab PO Q6HR PRN #25 tablet 06/16/14 Unknown Rx Amoxicillin/K Clav Tab [Augmentin 1 tab PO Q12HR #20 tab 01/15/15 Unknown Rx 875 mg] HYDROcodone/APAP 5-325 [[place] 1 each PO Q6HR PRN #12 tablet 01/15/15 Unknown Rx 5/325] predniSONE [Deltasone] 20 mg PO TID #12 tab 01/15/15 Unknown Rx Bacitracin Zinc [Antibiotic] 28.4 gm TP QID #1 oint...g. 08/06/15 Unknown Rx Permethrin 5% [Acticin 5% CREAM] 1 applicatio TP ONCE #2 tube 08/06/15 Unknown Rx Doxycycline Hyclate [Doxycycline 100 mg PO Q12HR #20 tab 12/11/17 Unknown Rx Hyclate TAB] Ibuprofen [Motrin 600 MG tab] 600 mg PO Q6H PRN #12 tablet 12/11/17 Unknown Rx Clindamycin [Clindamycin CAP] 300 mg PO Q6H 10 Days #40 capsule 04/15/18 Unknown Rx Ibuprofen [Motrin 600 MG tab] 600 mg PO Q8H PRN #20 tablet 04/15/18 Unknown Rx Sulfamethoxazole/Trimethoprim 1 each PO BID 10 Days #20 tablet 04/15/18 Unknown Rx [Bactrim DS TAB] traMADoL [Ultram] 50 mg PO Q6HR PRN #12 tablet 04/15/18 Unknown Rx amLODIPine 5 mg PO DAILY 30 Days #30 tab 07/17/18 Unknown Rx hydroCHLOROthiazide [HCTZ] 12.5 mg PO QDAY 30 Days #30 capsule 07/17/18 Unknown Rx Acetaminophen/Codeine [Tylenol #3] 1 tab PO Q6H PRN #15 tab 08/25/19 Unknown Rx Sulfamethoxazole/Trimethoprim 1 each PO BID #20 tablet 08/25/19 Unknown Rx [Bactrim Ds] cephALEXin [Keflex] 500 mg PO Q6HR #40 capsule 08/25/19 Unknown Rx Acetaminophen [Acetaminophen TAB] 1,000 mg PO Q6H PRN #30 tablet 11/29/20 Unknown Rx Metoclopramide [Reglan] 10 mg PO TID #30 tab 11/29/20 Unknown Rx diphenhydrAMINE [Benadryl CAP] 25 mg PO Q8HR PRN #30 capsule 11/29/20 Unknown Rx Sulfamethoxazole/Trimethoprim 1 each PO BID 10 Days #20 tab 03/29/21 Unknown Rx [Bactrim DS TAB] cephALEXin [Keflex] 500 mg PO Q12HR 10 Days #20 cap 03/29/21 Unknown Rx Cyclobenzaprine [Flexeril] 10 mg PO TID PRN #30 tab 08/15/21 Unknown Rx Lidocaine [Lidoderm] 1 each TP DAILY PRN #10 patch 08/15/21 Unknown Rx Naproxen [Naprosyn] 500 mg PO BID #14 tab 08/15/21 Unknown Rx Allergies Allergy/AdvReac Type Severity Reaction Status Date / Time fish derived Allergy Swelling Verified 08/15/21 12:49 ED Review of Systems ROS: Stated complaint: BACK PAIN Other details as noted in HPI Comment: All other systems reviewed and negative Constitutional: denies: chills, fever Eyes: denies: eye discharge ENT: denies: dental pain Respiratory: denies: shortness of breath, SOB with exertion Cardiovascular: denies: chest pain, palpitations Gastrointestinal: denies: abdominal pain, nausea, vomiting, diarrhea, hematemesis, melena, hematochezia Musculoskeletal: back pain Skin: denies: rash, lesions Neurological: denies: headache, weakness ED Past Medical Hx - Past Medical History Hx Hypertension: Yes Hx Congestive Heart Failure: Yes Hx Diabetes: No Hx Asthma: No Hx COPD: Yes - Surgical History Additional Surgical History: tubal ligation. cyst in breast - Social History Smoking Status: Former Smoker Substance Use Type: Alcohol - Medications Home Medications: Home Medications Medication Instructions Recorded Confirmed Last Taken Type Sulfamethoxazole/Trimethoprim 1 tab PO Q12H #30 tablet 11/23/12 08/05/15 Unknown Rx [Bactrim DS] Cyclobenzaprine [Flexeril] 10 mg PO TID PRN #12 tablet 05/20/13 08/05/15 Unknown Rx HYDROcodone/APAP 5-325 [[place] 1 each PO Q6HR PRN #12 tablet 05/20/13 08/05/15 Unknown Rx 5/325 mg] Sulfamethoxazole/Trimethoprim 1 each PO BID #20 tablet 05/20/13 08/05/15 Unknown Rx [Bactrim Ds] traMADoL [Ultram 50 MG tab] 1 tab PO Q6HR PRN #25 tablet 06/16/14 08/05/15 Unknown Rx Amoxicillin/K Clav Tab [Augmentin 1 tab PO Q12HR #20 tab 01/15/15 08/05/15 Unknown Rx 875 mg] HYDROcodone/APAP 5-325 [[place] 1 each PO Q6HR PRN #12 tablet 01/15/15 08/05/15 Unknown Rx 5/325] predniSONE [Deltasone] 20 mg PO TID #12 tab 01/15/15 08/05/15 Unknown Rx Bacitracin Zinc [Antibiotic] 28.4 gm TP QID #1 oint...g. 08/06/15 Unknown Rx Permethrin 5% [Acticin 5% CREAM] 1 applicatio TP ONCE #2 tube 08/06/15 Unknown Rx Doxycycline Hyclate [Doxycycline 100 mg PO Q12HR #20 tab 12/11/17 Unknown Rx Hyclate TAB] Ibuprofen [Motrin 600 MG tab] 600 mg PO Q6H PRN #12 tablet 12/11/17 Unknown Rx Clindamycin [Clindamycin CAP] 300 mg PO Q6H 10 Days #40 capsule 04/15/18 Unknown Rx Ibuprofen [Motrin 600 MG tab] 600 mg PO Q8H PRN #20 tablet 04/15/18 Unknown Rx Sulfamethoxazole/Trimethoprim 1 each PO BID 10 Days #20 tablet 04/15/18 Unknown Rx [Bactrim DS TAB] traMADoL [Ultram] 50 mg PO Q6HR PRN #12 tablet 04/15/18 Unknown Rx amLODIPine 5 mg PO DAILY 30 Days #30 tab 07/17/18 Unknown Rx hydroCHLOROthiazide [HCTZ] 12.5 mg PO QDAY 30 Days #30 capsule 07/17/18 Unknown Rx Acetaminophen/Codeine [Tylenol #3] 1 tab PO Q6H PRN #15 tab 08/25/19 Unknown Rx Sulfamethoxazole/Trimethoprim 1 each PO BID #20 tablet 08/25/19 Unknown Rx [Bactrim Ds] cephALEXin [Keflex] 500 mg PO Q6HR #40 capsule 08/25/19 Unknown Rx Acetaminophen [Acetaminophen TAB] 1,000 mg PO Q6H PRN #30 tablet 11/29/20 Unknown Rx Metoclopramide [Reglan] 10 mg PO TID #30 tab 11/29/20 Unknown Rx diphenhydrAMINE [Benadryl CAP] 25 mg PO Q8HR PRN #30 capsule 11/29/20 Unknown Rx Sulfamethoxazole/Trimethoprim 1 each PO BID 10 Days #20 tab 03/29/21 Unknown Rx [Bactrim DS TAB] cephALEXin [Keflex] 500 mg PO Q12HR 10 Days #20 cap 03/29/21 Unknown Rx Cyclobenzaprine [Flexeril] 10 mg PO TID PRN #30 tab 08/15/21 Unknown Rx Lidocaine [Lidoderm] 1 each TP DAILY PRN #10 patch 08/15/21 Unknown Rx Naproxen [Naprosyn] 500 mg PO BID #14 tab 08/15/21 Unknown Rx ED Physical Exam - General Limitations: No Limitations General appearance: alert, in no apparent distress - Head Head exam: Present: atraumatic, normocephalic - Eye Eye exam: Present: normal appearance. Absent: conjunctival injection - Neck Neck exam: Present: normal inspection. Absent: tenderness - Respiratory Respiratory exam: Absent: respiratory distress - Cardiovascular Cardiovascular Exam: Present: regular rate - GI/Abdominal GI/Abdominal exam: Present: soft. Absent: distended, tenderness - Extremities Exam Extremities exam: Present: normal inspection - Back Exam Back exam: Present: normal inspection, tenderness (Bilateral lower). Absent: vertebral tenderness - Neurological Exam Neurological exam: Present: alert, oriented X3, CN II-XII intact, normal gait, reflexes normal. Absent: motor sensory deficit - Psychiatric Psychiatric exam: Present: normal affect, normal mood - Skin Skin exam: Present: warm, dry, intact, normal color ED Course Vital Signs 08/15/21 12:47 Temperature 97.8 F Pulse Rate 75 Respiratory 18 Rate Blood Pressure 161/90 [Left] O2 Sat by Pulse 98 Oximetry ED Medical Decision Making - Medical Decision Making 61-year-old black female presents to the emergency department for evaluation of lower back pain. She states that while walking around 2 days ago, she slipped and fell landing on her buttocks. She states that she has had lower back pain since then. She denies loss of consciousness, fever, urinary symptoms, or radiation of pain. She states that she has not taken any medications for pain and pain is worse has been about 7 out of 10. Physical exam consistent with musculoskeletal lower back pain only. No midline vertebral tenderness noted. Patient will be treated with anti-inflammatories and muscle relaxants in the emergency department and discharged home with naproxen, Flexeril, and Lidoderm patches to use as needed for pain. She is advised to take medication as prescribed and follow-up with her primary care provider if no improvement or worsening symptoms. She is advised to return to the emergency department as needed. She verbalizes understanding of and agreement with plan of care. Critical care attestation.: If time is entered above; I have spent that time in minutes in the direct care of this critically ill patient, excluding procedure time. ED Disposition Clinical Impression: Fall Qualifiers: Encounter type: initial encounter Qualified Code(s): W19.XXXA - Unspecified fall, initial encounter Back pain Qualifiers: Back pain location: low back pain Chronicity: acute Back pain laterality: bilateral Sciatica presence: without sciatica Qualified Code(s): M54.50 - Low back pain, unspecified Disposition: HOME / SELF CARE / HOMELESS Is pt being admited?: No Does the pt Need Aspirin: No Condition: Stable Instructions: Acute Back Pain, Adult Additional Instructions: Take medications as prescribed. Follow-up with primary care provider if no improvement or worsening symptoms. Return to the emergency department as needed. Prescriptions: Cyclobenzaprine [Flexeril] 10 mg PO TID PRN #30 tab PRN Reason: Muscle Spasm Lidocaine [Lidoderm] 1 each TP DAILY PRN #10 patch PRN Reason: Pain, Moderate (4-6) Naproxen [Naprosyn] 500 mg PO BID #14 tab Referrals: ANGEL BLACKWELL MD [Staff Physician] - 3-5 Days Time of Disposition: 13:07
== END 2021-08-15 13:21 | disposition home or self-care (01) ==
LOC: ED 12:36
DX: M54.50 Low back pain, unspecified (principal); I11.0 Hypertensive heart disease with heart failure; I50.9 Heart failure, unspecified; J44.9 Chronic obstructive pulmonary disease, unspecified; Z98.51 Tubal ligation status; Z87.891 Personal history of nicotine dependence; Z72.89 Other problems related to lifestyle; Z91.013 Allergy to seafood; Z79.899 Other long term (current) drug therapy; W18.39XA Other fall on same level, initial encounter; Y93.89 Activity, other specified; Y92.89 Other specified places as the place of occurrence of the external cause; Y99.8 Other external cause status
CPT/HCPCS: 99282